=== PATIENT | male | born 1940 | race Caucasian/White ===

== ENCOUNTER → 2017-06-16 | Day surgery (SDC) | payer OTHER ==
[~2017-06-16] MED LIST: ACETAMINOPHEN 1000 MG/100 ML 100 ML IV ONE; ACETAMINOPHEN/HYDROcodone 325 MG/5 MG TAB ONE; ASPI81TA82 PO; ATOR80TA41 PO; BUPIVACAINE/EPINEPHRINE 0.25% 50 ML VIAL ONE; CLOP75 PO; LIDOCAINE 0.5%/EPINEPHrine 1:200,000 SOLN 50 ML VIAL ONE; LIDOCAINE 1%/EPINEPHrine 1:200,000 PF SOLN 30 ML VIAL ONE; MIDAZOLAM HCL 2 MG/2 ML VIAL ONE; MORPHINE SULFATE 4 MG/ML INJ ONE; NITR.4 SL; ONDANSETRON HCL 4 MG/2 ML VIAL IV PUSH ONE; PROPOFOL 200 MG/20 ML AMP IV ONE; ceFAZolin INJ 1,000 MG VIAL ONE; oxyCODONE/ACETAMINOPHEN 5 MG/325 MG TAB ONE
--- NOTE | 2017-06-16 13:12 | TN ---
cc: GENTRY AMEZCUA RIZALINA M.D. DATE OF SURGERY: 06/16/2017 PREOPERATIVE DIAGNOSIS Left inguinal hernia. POSTOPERATIVE DIAGNOSIS Left direct inguinal hernia. PROCEDURE Repair of left direct inguinal hernia with mesh. ANESTHESIA General. SURGEON Dr. Amezcua. INDICATION This is a pleasant 76-year-old gentleman who had a symptomatic left inguinal hernia. Plans were made for above. PROCEDURE The patient was taken to the operating room and placed in the supine position. After anesthesia his left groin and abdomen was prepped with Betadine. Time-out was done. He was given preoperative antibiotics. We make an oblique incision overlying the internal and external ring, dissect down through the Jennifer's fascia, identifying the external oblique aponeurosis which is incised. Cord structures surrounded with a Beata drain. A direct sac is seen which is away from the cord structures and imbricated on itself with a 2-0 Vicryl. The ilioinguinal nerve will be laying right on top of the mesh so this is sacrificed to prevent chronic discomfort. It is dissected all the way up into the internal oblique muscle and cauterized. We then place a piece of polypropylene mesh cut to size, securing it to the pubic tubercle, Rodrigo's ligament, iliopubic, tracked out laterally and the conjoined tendon medially with the tails fashioned to themselves and the internal oblique aponeurosis. We then closed the external oblique aponeurosis with 2-0 Vicryl, Jennifer's with 2-0 Vicryl and skin with 4-0 Vicryl. Steri-Strips were applied. Sterile bandage was applied. The patient tolerated the procedure well and had no immediate postop complications. Gentry Amezcua MD JCHAITANYA/BRUNO /12:46 PM /1:01 PM MAGDA
== END | disposition home or self-care (01) ==
LOC: ESDC 10:03
PROVIDERS: ATTEND Surgery
DX: K40.90 Unilateral inguinal hernia, without obstruction or gangrene, not specified as recurrent (principal)
CPT/HCPCS: 00830; 49505; C1781; J0131; J0690; J2250; J2270; J2405; J3010